=== PATIENT | female | born 1950 | race Caucasian/White ===

== ENCOUNTER 2017-05-24 08:18 | Emergency (ER) | payer OTHER, MEDICARE ==
[~2017-05-24 08:18] MED LIST: ANASTROZOLE1 MG PO; FEOSOL325 MG PO; HCTZ25 MG PO; HYDRALAZINE25 MG PO; MAG-OXIDE 400M400 MG PO; NABUMETONE500 MG PO; NORVASC10 MG PO; PROBIOTIC1 EAC1 PO; SYNTHROID125 MCG PO; TOPROL XL25 MG PO; ULORIC40 MG PO; VITAMIN E200 UNI1 PO
[2017-05-24 08:47] LABS: BASOPHIL 0.3 % (0-2); EOSINOPHIL 0.7 % (0-7); HCT 37.1 % (37.0-47.0); LYMPHOCYTE 7.5 % (15-48); MCH 25.7 pg (25.0-31.0); MCHC 32.3 g/dL (32.0-36.0); MCV 79.4 fL (78.0-100.0); MONOCYTE 6.6 % (0-12); MPV 10.9 fL (6.0-9.5); NEUTROPHIL 84.9 % (41-80); PLT 368 K/uL (150-400); RBC 4.67 M/uL (4.20-5.40); RDW 16.5 % (11.5-14.0)
[2017-05-24 08:51] LABS: WBC 20.6 K/uL (4.0-10.5)
[2017-05-24 09:02] LABS: ALBUMIN 4.2 g/dL (3.4-4.8); BILIRUBIN - TOTAL 0.6 mg/dL (0.1-1.0); CREATININE 0.8 mg/dL (0.5-1.0); GLOBULIN (CALCULATION) 2.9 g/dL (2.2-4.2); POTASSIUM 4.4 mmol/L (3.5-5.1); TOTAL PROTEIN 7.1 g/dL (6.4-8.3)
[2017-05-24 09:24] LABS: BILIRUBIN 2+ mg/dL (NEGATIVE); BLOOD NEGATIVE Ery/uL (NEGATIVE); CLARITY CLEAR (CLEAR); COLOR AMBER (YELLOW); GLUCOSE (U) NORMAL (NORMAL); KETONE (U) TRACE mg/dL (NEGATIVE); LEUKOCYTES 1+ Leu/uL (NEGATIVE); NITRITE NEGATIVE (NEGATIVE); PROTEIN 2+ mg/dL (NEGATIVE); SPECIFIC GRAVITY >=1.030 (1.001-1.030)
[2017-05-24 09:28] LABS: BACTERIA 3+; MUCOUS TRACE
[2017-05-24 09:38] LABS: AMPHETAMINES NEGATIVE (NEGATIVE); BARBITURATES NEGATIVE (NEGATIVE); BENZODIAZEPINES NEGATIVE (NEGATIVE); COCAINE NEGATIVE (NEGATIVE); MARIJUANA (THC) NEGATIVE (NEGATIVE); METHADONE NEGATIVE (NEGATIVE); TRICYCLIC ANTIDEPRESSANT NEGATIVE (NEGATIVE)
== END 2017-05-24 12:07 | disposition other institution (70) ==
LOC: FER 08:18
PROVIDERS: Emergency Medicine
DX: I47.1 Supraventricular tachycardia (principal); I10 Essential (primary) hypertension; E03.9 Hypothyroidism, unspecified; Z79.899 Other long term (current) drug therapy; Z79.82 Long term (current) use of aspirin
CPT/HCPCS: 36415; 71010; 80053; 80305; 81001; 84443; 84484; 85025; 93005; J0282

== ENCOUNTER 2021-09-22 15:56 | Inpatient (IN) | payer OTHER, MEDICARE ==
[~2021-09-22] VITALS: Ht 157.5 cm; Wt 104.4 kg
[~2021-09-22 15:56] MED LIST changes: +ACETAMINOPHEN500 M1 PO; +AMARYL2 MG PO; +AMIODARONE HCL200 MG PO; +APRESOLINE100 MG PO; +ASPIRIN CHEWABL81 MG PO; +BIOTIN10000 MCG PO; +BUMETANIDE1 MG PO; +CALCIUM VIT D3 PO; +CARDIZEM CD180 MG PO; +CARDIZEM CD240 M1 PO; +CARDIZEM CD240 MG PO; +CEFDINIR300 MG PO; +CYCLOBENZAPRINE10 MG PO; +DEMADEX20 MG PO; +DOXYCYCLINE MO100 MG PO; +ELIQUIS5 MG PO; +GLUCOSAMINE CH1 EAC2 PO; +LEVOTHYROXINE PO; +LIPITOR40 MG PO; +PERCOCET 5-3251 EACH PO; +POTASSIUM; +SENOKOT8.6 MG PO; +STOOL SOFTENER100 M1 PO; +STOOL SOFTENER50 MG PO; +SYNTHROID100 MCG PO; +TOPROL XL100 MG PO; +UBIQUINONE PO; +VITAMIN D1000 UNI1 PO
[2021-09-22 17:23] LABS: BASOPHIL 0.9 % (0-2); EOSINOPHIL 1.9 % (0-7); HCT 34.6 % (37.0-47.0); LYMPHOCYTE 10.5 % (15-48); MCH 28.7 pg (25.0-31.0); MCHC 31.8 g/dL (32.0-36.0); MCV 90.3 fL (78.0-100.0); MONOCYTE 8.3 % (0-12); MPV 10.6 fL (6.0-9.5); NEUTROPHIL 78.1 % (41-80); NRBC 0; PLT 237 K/uL (150-400); RBC 3.83 M/uL (4.20-5.40); RDW 14.1 % (11.5-14.0); WBC 11.7 K/uL (4.0-10.5)
[2021-09-22 17:33] LABS: INR 1.58 (0.9-1.2); PROTHROMBIN TIME 18.1 SECONDS (11.8-13.4); PTT 33.3 SECONDS (24.4-34.7)
[2021-09-22 17:51] LABS: LACTIC ACID 1.7 mmol/L (0.4-1.9)
[2021-09-22 17:53] LABS: ALBUMIN 4.3 g/dL (3.4-5.0); BILIRUBIN - TOTAL 0.5 mg/dL (0.2-1.0); BUN/CREAT RATIO (CALC) 34.2 RATIO; CREATININE 1.55 mg/dL (0.51-0.95); POTASSIUM 3.6 mmol/L (3.5-5.1); TOTAL PROTEIN 7.3 g/dL (6.4-8.2)
[2021-09-22 18:45] LABS: BILIRUBIN NEGATIVE (NEGATIVE); BLOOD NEGATIVE Ery/uL (NEGATIVE); CLARITY CLEAR (CLEAR); COLOR YELLOW (YELLOW); GLUCOSE (U) NORMAL (NORMAL); LEUKOCYTES NEGATIVE Leu/uL (NEGATIVE); NITRITE NEGATIVE (NEGATIVE); PROTEIN NEGATIVE (NEGATIVE); UROBILINOGEN 0.2 mg/dL (0.2-1.0); pH 5.5 (5.0-9.0)
[2021-09-23 02:39] LABS: HCT 33.9 % (37.0-47.0); HGB 10.5 g/dl (12.5-16.0); MCH 28.5 pg (25.0-31.0); MCV 92.1 fL (78.0-100.0); MPV 10.7 fL (6.0-9.5); RBC 3.68 M/uL (4.20-5.40); RDW 14.4 % (11.5-14.0); WBC 10.9 K/uL (4.0-10.5)
[2021-09-23 03:04] LABS: BILIRUBIN - TOTAL 0.6 mg/dL (0.2-1.0); BUN/CREAT RATIO (CALC) 34.7 RATIO; CREATININE 1.44 mg/dL (0.51-0.95); GLOBULIN (CALCULATION) 2.9 g/dL; MAGNESIUM 2.3 mg/dL (1.8-2.4); PHOSPHORUS 4.4 mg/dL (2.6-4.7); POTASSIUM 3.3 mmol/L (3.5-5.1); TOTAL PROTEIN 6.9 g/dL (6.4-8.2)
[2021-09-23 14:56] LABS: BUN/CREAT RATIO (CALC) 35.8 RATIO; CREATININE 1.37 mg/dL (0.51-0.95); POTASSIUM 3.6 mmol/L (3.5-5.1)
[2021-09-23 17:49] LABS: BUN/CREAT RATIO (CALC) 36.7 RATIO; CREATININE 1.28 mg/dL (0.51-0.95); POTASSIUM 3.5 mmol/L (3.5-5.1)
[2021-09-24 02:45] LABS: BASOPHIL 0.8 % (0-2); EOSINOPHIL 3.2 % (0-7); HGB 10.3 g/dl (12.5-16.0); LYMPHOCYTE 12.4 % (15-48); MCH 28.5 pg (25.0-31.0); MCHC 31.2 g/dL (32.0-36.0); MCV 91.2 fL (78.0-100.0); MONOCYTE 8.2 % (0-12); MPV 11.2 fL (6.0-9.5); NRBC 0; PLT 220 K/uL (150-400); RBC 3.62 M/uL (4.20-5.40); RDW 14.4 % (11.5-14.0); WBC 11.4 K/uL (4.0-10.5)
[2021-09-24 03:00] LABS: BUN/CREAT RATIO (CALC) 35.8 RATIO; CREATININE 1.23 mg/dL (0.51-0.95); POTASSIUM 3.6 mmol/L (3.5-5.1)
[2021-09-24] MEDS ORDERED: BUMEX1 MG PO (09:18)
[2021-09-24] MEDS ORDERED: CHLORTHALIDONE25 MG PO (09:22)
[2021-09-25 13:00] LABS: BASOPHIL 0.4 % (0-2); EOSINOPHIL 2.2 % (0-7); HCT 36.7 % (37.0-47.0); HGB 11.5 g/dl (12.5-16.0); LYMPHOCYTE 6.9 % (15-48); MCH 28.3 pg (25.0-31.0); MCHC 31.3 g/dL (32.0-36.0); MCV 90.2 fL (78.0-100.0); MONOCYTE 6.7 % (0-12); MPV 10.9 fL (6.0-9.5); NEUTROPHIL 83.5 % (41-80); NRBC 0; PLT 244 K/uL (150-400); RBC 4.07 M/uL (4.20-5.40); RDW 14.2 % (11.5-14.0); WBC 15.9 K/uL (4.0-10.5)
[2021-09-25 13:17] LABS: BUN/CREAT RATIO (CALC) 32.2 RATIO; CREATININE 1.18 mg/dL (0.51-0.95); POTASSIUM 3.6 mmol/L (3.5-5.1)
[2021-09-26 05:53] LABS: BASOPHIL 0.5 % (0-2); HCT 36.1 % (37.0-47.0); HGB 11.5 g/dl (12.5-16.0); MCH 28.5 pg (25.0-31.0); MCHC 31.9 g/dL (32.0-36.0); MCV 89.6 fL (78.0-100.0); MONOCYTE 8.2 % (0-12); MPV 10.1 fL (6.0-9.5); NRBC 0; PLT 235 K/uL (150-400); RBC 4.03 M/uL (4.20-5.40); RDW 13.8 % (11.5-14.0); WBC 15.3 K/uL (4.0-10.5)
[2021-09-26 06:10] LABS: BUN/CREAT RATIO (CALC) 27.8 RATIO; CREATININE 1.15 mg/dL (0.51-0.95); POTASSIUM 3.6 mmol/L (3.5-5.1)
[2021-09-26] MEDS ORDERED: DIGITEK250 MCG PO (10:15)
[2021-09-26] MEDS ORDERED: TOPROL XL100 MG PO (10:15)
[2021-09-26] MEDS ORDERED: KLOR-CON M2020 MEQ PO (10:15)
== END 2021-09-26 12:35 | disposition home or self-care (01) | DRG 280 ==
LOC: FER 15:56 → FTCU 19:29
PROVIDERS: Emergency Medicine; Family Medicine; Nurse Practitioner; Nurse Practitioner Family; ADMIT Internal Medicine
PROC: B24BZZZ Ultrasonography of Heart with Aorta (ICD-10-PCS; principal; 2021-09-23)
DX: I13.0 Hypertensive heart and chronic kidney disease with heart failure and stage 1 through stage 4 chronic kidney disease, or unspecified chronic kidney disease (principal); I50.33 Acute on chronic diastolic (congestive) heart failure; I21.A1 Myocardial infarction type 2; N17.9 Acute kidney failure, unspecified; I48.91 Unspecified atrial fibrillation; E11.22 Type 2 diabetes mellitus with diabetic chronic kidney disease; E87.6 Hypokalemia; E83.42 Hypomagnesemia; I72.8 Aneurysm of other specified arteries; G47.33 Obstructive sleep apnea (adult) (pediatric); E66.01 Morbid (severe) obesity due to excess calories; Z20.822 Contact with and (suspected) exposure to COVID-19; E78.5 Hyperlipidemia, unspecified; I25.10 Atherosclerotic heart disease of native coronary artery without angina pectoris; M10.9 Gout, unspecified; E03.9 Hypothyroidism, unspecified; I49.5 Sick sinus syndrome; N18.30 Chronic kidney disease, stage 3 unspecified; E11.65 Type 2 diabetes mellitus with hyperglycemia; Z96.652 Presence of left artificial knee joint; Z90.710 Acquired absence of both cervix and uterus; Z85.3 Personal history of malignant neoplasm of breast; Z90.49 Acquired absence of other specified parts of digestive tract; Z95.0 Presence of cardiac pacemaker; Z79.01 Long term (current) use of anticoagulants; Z79.82 Long term (current) use of aspirin; Z79.899 Other long term (current) drug therapy; Z88.1 Allergy status to other antibiotic agents; Z88.8 Allergy status to other drugs, medicaments and biological substances; Z98.51 Tubal ligation status; Z98.890 Other specified postprocedural states; Z90.11 Acquired absence of right breast and nipple; Z83.3 Family history of diabetes mellitus; Z82.49 Family history of ischemic heart disease and other diseases of the circulatory system
CPT/HCPCS: 36415; 71045; 71250; 80048; 80053; 80061; 81003; 82553; 82962; 83036; 83605; 83735; 83880; 84100; 84145; 84484; 85025; 85610; 85730; 87076; 87088; 87186; 90670; 93005; 94010; 94660; 94760; 94762; G0378; J1160; J3475; U0002